=== PATIENT | female | born 1985 | race Two or more races ===

== ENCOUNTER 2025-03-20 11:08 | Emergency (ER) | payer MEDICAID, SELFPAY ==
[2025-03-20 11:15] VITALS: BP 103/70; PULSE 87; RESP 18; TEMP 36.6; O2SAT 99; BMI 20.2
--- NOTE | 2025-03-20 11:49 | XR_ITS ---
Examination: CT cervical spine without contrast 2-D sagittal reconstructions 2-D coronal reconstructions 3-D reconstructions. Exam date and time:March 20, 2025, 1313 hours INDICATIONS: Patient fell today with injury to the neck, neck pain CTDI:vol (mGy) 7.27 DLP: (mGycm) 137 Technique: Multiple 2 mm axial sections of the cervical spine have been obtained. The coronal and sagittal reconstructions have been obtained. 3-D reconstructions have been obtained. Low dose protocols were performed. One or more of the following dose reduction techniques were used; automated exposure control, adjustment of the mA and/or KV according to patient size, use of iterative reconstruction technique. Findings: Axial sections demonstrate intact base of the skull. C1 exhibit satisfactory relationship to the odontoid. No acute cervical vertebral body fracture seen. Alignment posterior spinous processes satisfactory. Impression: No acute cervical fracture.
--- NOTE | 2025-03-20 11:49 | XR_ITS ---
Examination: CT brain head without contrast. 2-D sagittal coronal reconstructions Date and time of exam:March 20, 2025 1313 hours INDICATIONS: Patient fell today with injury to the head, head pain CTDI: vol (mGy):46 DLP: (mGycm):898 Technique: Multiple CT axial sections of the brain have been obtained, 5 mm slice thickness. Contrast has not been administered. 2-D sagittal, coronal reconstructions have been obtained Low dose protocols were performed. One or more of the following dose reduction techniques were used; automated exposure control, adjustment of the mA and/or KV according to patient size, use of iterative reconstruction technique. Findings: No significant ventricular enlargement. Intra-axial or extra-axial hemorrhage density is not seen. No mass effect or midline shift Basal cisterns are not remarkable. Fourth ventricle is midline. Cranial vault intact. Impression: Negative for acute hemorrhage, mass effect or midline shift
--- NOTE | 2025-03-20 11:50 | EDNOTE_ITS ---
<Statement entered by Mari Orosco MD - 03/26/25 05:24> As co-signing physician, I was present and available for consult prn. I concur with the plan and care as documented by the midlevel provider. ED Headache RME/HPI General Chief Complaint: Headache Stated Complaint: HEADACHE X20 DAYS Time Seen by Provider: 03/20/25 11:19 Arrival date/time: 03/20/25 11:08 This is a 39-year-old female that fell off her bed and hit the back of her head and neck. Patient states it happened over 2 weeks ago. Patient states she still has constant pain. Patient denies any loss of consciousness. Patient denies any other symptoms other than pain Related Data Home Medications ?Medication ?Instructions ?Recorded ?Confirmed clonazepam 0.5 mg tablet (Klonopin) 0.5 mg PO BID #0 t abs 03/22/17 levofloxacin 500 mg tablet 1 tab PO QDAY #0 tabs 03/22 (Levaquin) pentoxifylline 400 mg 400 mg PO TID ##0 03/22/17 tablet,extended release Previous Rx's ?Medication ?Instructions ?Recorded Hydrocodone/Acetaminophen * (NORCO 1 - 2 tab PO Q4H DE N PAIN #14 tabs 03/22/17 5/325 *) Sulfamethoxazole/Trimethoprim DS * 1 tab PO BID #20 ta bs 03/22/17 (BACTRIM DS *) hydroxyzine HCl 50 mg tablet 50 mg PO Q6HR PRN ANXIETY #20 tabs 03/26/17 meloxicam 7.5 mg tablet 7.5 mg PO QDAY #10 tabs 06/25 02/15 hydroxyzine HCl 50 mg tablet 50 mg PO TID PRN anxiety #30 tabs 07/23/24 pantoprazole 40 mg tablet,delayed 40 mg PO QDAY #30 ta bs 07/23/24 release (Protonix) cyclobenzaprine 10 mg tablet 10 mg PO HS PRN muscle sp asm #14 03/20/25 tabs ibuprofen 800 mg tablet 800 mg PO Q6H PRN pain #14 t abs 03/20/25 Allergies Allergy/AdvReac Type Severity Reaction Status Date / Time metoclopramide Allergy Unknown Verified 03/20/25 11:13 Review of Systems Review of Systems Systems Reviewed: All systems reviewed, normal except as documented Past Medical History Past Medical History CARDIAC: Negative Congestive Heart Failure RESPIRATORY: Negative Chronic Obstructive Pulmonary Disease (COPD) GENITOURINARY: Negative Renal Disease ENDOCRINE: Negative Diabetes Mellitus Type 1 or Diabetes Mellitus Type 2 Social History SMOKING STATUS: Never smoker SUBSTANCE USE: does not use ED Exam General General appearance: Present alert and in no apparent distress Head Head exam: Present atraumatic Eye Eye exam: Present normal appearance, PERRL and EOMI ENT ENT exam: Present normal exam, normal oropharynx and mucous membranes moist Neck Neck exam: Present normal inspection, full ROM and trachea midline Chest Chest inspection: Present normal inspection and symmetric chest wall rise Respiratory Respiratory exam: Present normal lung sounds bilaterally Cardiovascular Cardiovascular exam: Present regular rate, normal rhythm and normal heart sounds Abdominal Exam Abdominal exam: Present soft and normal bowel sounds Extremities Exam Extremities exam: Present full ROM and other (pain to palpation to lateral muscles of neckon both sides, no pain over spinal processes ) Back Exam Back exam: Present normal inspection and full ROM Neurological Exam Neurological exam: Present alert, oriented X3 and CN II-XII intact Psychiatric Psychiatric exam: Present normal affect and normal mood Skin Skin exam: Present warm, dry, intact and normal color Course Quality Measures none Orders Category Date Time Status CT cervical spine wo con Stat Exams 03/20/25 11:[address] head/brain wo con Stat Exams 03/20/25 11:49 Completed Acetaminophen Tab [Tylenol ES Tab] Med 03/20/25 11:50 Discontinued 1,000 mg PO X1 ONE CYCLObenzaPRINE [Flexeril] Med 03/20/25 11:50 Discontinued 5 mg PO X1 ONE Ibuprofen Tab [Motrin Tab] Med 03/20/25 11:50 Discontinued 800 mg PO X1 ONE Vital Signs Vital signs: Vital Signs Temperature 97.9 F 03/20/25 11:15 Pulse Rate 87 03/20/25 11:15 Respiratory Rate 18 03/20/25 11:15 Blood Pressure 103/70 03/20/25 11:15 Pulse Oximetry (%) 99 03/20/25 11:15 Oxygen Delivery Method Room Air 03/20/25 11:15 Headache MDM Narrative MDM Narrative:: CT cervical: Findings: Axial sections demonstrate intact base of the skull. C1 exhibit satisfactory relationship to the odontoid. No acute cervical vertebral body fracture seen. Alignment posterior spinous processes satisfactory. Impression: No acute cervical fracture. ct head: Findings: No significant ventricular enlargement. Intra-axial or extra-axial hemorrhage density is not seen. No mass effect or midline shift Basal cisterns are not remarkable. Fourth ventricle is midline. Cranial vault intact. Impression: Negative for acute hemorrhage, mass effect or midline shift Patient given Tylenol and ibuprofen along with Flexeril. Will send patient home with Flexeril and ibuprofen. Patient told to follow-up with primary provider in 1 to 2 days. Can back to the emergency room if symptoms change or worsen. Today patient had Ct scans. There was no acute fracture seen. Exam appeared unremarkable. I explained to patient at length that if there was continued pain to this area or worsened to come back to ED or see primary provider for more xrays or further testing such as CT scan or MRI. CT scans are not perfect and sometimes serial films needed. Patient verbalized understanding. Patient states they will follow up with primary provider in 1-2 days or come back to ED if symptoms change or worsen. Patient data External records reviewed:: [facility] previous records Clinical information provided by:: patient Social determinants that could affect healthcare access:: none Patient has the following chronic illnesses:: none How is presenting disease/condition affected by chronic disease/condition?: no chronic disease Evaluation data The following diagnostics were reviewed and interpreted by me:: radiology exam(s) Lab and/or radiology exams considered but not ordered:: none Interpretation Summary: see note Medications / Prescriptions Medications or Prescriptions considered but not ordered:: none Medication administrations:: Medication Administration History Discontinued Medications Acetaminophen (Acetaminophen 500 Mg Tablet) 1,000 mg PO X1 ONE Stop: 03/20/25 11:51 Last Admin: 03/20/25 12:13 Dose: 1,000 mg Documented By: TM Cyclobenzaprine HCl (Cyclobenzaprine 5 Mg Tablet) 5 mg PO X1 ONE Stop: 03/20/25 11:51 Last Admin: 03/20/25 12:13 Dose: 5 mg Documented By: TM Ibuprofen (Ibuprofen Tab 400 Mg Tablet) 800 mg PO X1 ONE Stop: 03/20/25 11:51 Last Admin: 03/20/25 12:13 Dose: 800 mg Documented By: TM see [facility] Consultations Consultation(s) initiated? (list below): No Diagnosis Differential diagnosis headache: migraine, tension headache, subarachnoid hemorrhage and postconcussion syndrome Most likely diagnosis given after review of the tests above:: headache s/p head injury Admission Indicated Admission indicated?: not indicated Admission Request Was there a request for admission?: No Disposition Plan Disposition Plan: Discharge Discharge Attestation Discharge Attestation: The patient and all family members were given an opportunity to ask questions and understood the discharge instructions. Discharge instructions specifically effects, indications for sooner follow up or return to the emergency department, and the expected course of current diagnosis. Patient condition: Stable Discharge Plan Plan Patient Disposition: HOME (Self Care) Patient condition on transfer: Stable Prescriptions/Referrals Prescriptions/Med Rec: New cyclobenzaprine 10 mg tablet 10 mg PO HS PRN (Reason: muscle spasm) Qty: 14 0RF ibuprofen 800 mg tablet 800 mg PO Q6H PRN (Reason: pain) Qty: 14 0RF No Action clonazepam [Klonopin] 0.5 MG tablet 0.5 mg PO BID Qty: 0 pentoxifylline 400 MG tablet extended release 400 mg PO TID Qty: 0 levofloxacin [Levaquin] 500 MG tablet 1 tab PO QDAY Qty: 0 Patient Comments: FOR INFECTION Hydrocodone/Acetaminophen * (NORCO 5/325 *) 1 TAB tablet 1 - 2 tab PO Q4H PRN (Reason: PAIN) Qty: 14 0RF Rx Instructions: FOR PAIN Sulfamethoxazole/Trimethoprim DS * (BACTRIM DS *) 1 TAB tablet 1 tab PO BID Qty: 20 0RF hydroxyzine HCl 50 MG tablet 50 mg PO Q6HR PRN (Reason: ANXIETY) Qty: 20 0RF pantoprazole [Protonix] 40 mg tablet,delayed release (DR/EC) 40 mg PO QDAY Qty: 30 0RF hydroxyzine HCl 50 mg tablet 50 mg PO TID PRN (Reason: anxiety) Qty: 30 0RF meloxicam 7.5 mg tablet 7.5 mg PO QDAY Qty: 10 0RF Referrals: Kd Farrell MD [Primary Care Provider] - In 1 week Problem List Clinical Impression: Contusion Patient/Caregiver Discharge Instructions Discharge Activity: activity as tolerated Education Materials: Contusion Bone Tx Additional Instructions: Follow up with primary provider in 1-2 days. Come back to ED if symptoms change or worsen Print Language: Lao Stand Alone Forms: Bridgette Award Info., Patient Portal Info Letter PA/GLASS GRINDER Supervising Physician PA/GLASS GRINDER Supervising Physician: clarence
[2025-03-20] MEDS: IBUPROFEN TAB 400 MG TABLET 800 MG PO (12:13)
[2025-03-20] MEDS: CYCLObenzaPRINE 5 MG TABLET PO (12:13)
[2025-03-20] MEDS: ACETAMINOPHEN 500 MG TABLET 1000 MG PO (12:13)
== END 2025-03-20 14:44 | disposition home or self-care (01) ==
PROVIDERS: Emergency Provider Emergency Medicine; PCP Obstetrics & Gynecology
DX: S10.93XA Contusion of unspecified part of neck, initial encounter (principal); S00.93XA Contusion of unspecified part of head, initial encounter; W06.XXXA Fall from bed, initial encounter
CPT/HCPCS: 70450; 72125; A9270

== ENCOUNTER 2025-09-17 09:50 | Emergency (ER) | payer MEDICAID, SELFPAY ==
[2025-09-17 09:51] VITALS: BMI 23.0
[2025-09-17 10:05] VITALS: BP 130/76; PULSE 77; RESP 18; TEMP 36.9; O2SAT 100
--- NOTE | 2025-09-17 10:10 | PD.EDWOUND ---
ED Wound/Laceration-RME/HPI General Chief Complaint: Wound/Laceration Stated Complaint: SUPERFICIAL LAC TO BILAT. HANDS S/P BROKEN DOOR Time Seen by Provider: 09/17/25 09:59 Source: patient Arrival date/time: 09/17/25 09:50 40-year-old female with no known medical history presents to the emergency room with a chief complaint of a laceration to her left hand after a glass door broke 1 hour ago. Mode of arrival: ambulatory Limitations: no limitations Related Data Home Medications ?Medication ?Instructions ?Recorded ?Confirmed clonazepam 0.5 mg tablet (Klonopin) 0.5 mg PO BID #0 tabs 03/22/17 levofloxacin 500 mg tablet 1 tab PO QDAY #0 tabs 03/22/17 (Levaquin) pentoxifylline 400 mg 400 mg PO TID ##0 03/22/17 tablet,extended release Previous Rx's ?Medication ?Instructions ?Recorded Hydrocodone/Acetaminophen * (NORCO 1 - 2 tab PO Q4H PRN PAIN #14 tabs 03/22/17 5/325 *) Sulfamethoxazole/Trimethoprim DS * 1 tab PO BID #20 tabs 03/22/17 (BACTRIM DS *) hydroxyzine HCl 50 mg tablet 50 mg PO Q6HR PRN ANXIETY #20 tabs 03/26/17 meloxicam 7.5 mg tablet 7.5 mg PO QDAY #10 tabs 07/07/24 hydroxyzine HCl 50 mg tablet 50 mg PO TID PRN anxiety #30 tabs 07/23/24 pantoprazole 40 mg tablet,delayed 40 mg PO QDAY #30 tabs 07/23/24 release (Protonix) cyclobenzaprine 10 mg tablet 10 mg PO HS PRN muscle spasm #14 03/20/25 tabs ibuprofen 800 mg tablet 800 mg PO Q6H PRN pain #14 tabs 03/20/25 Allergies Allergy/AdvReac Type Severity Reaction Status Date / Time metoclopramide Allergy Unknown Verified 09/17/25 09:53 Review of Systems Review of Systems Systems Reviewed: All systems reviewed, normal except as documented Constitutional Constitutional: Reports system reviewed and no additional complaints, except as documented, Denies fatigue, Denies fever(s), Denies headache(s) and Denies weakness Eyes Eyes: Reports system reviewed and no additional complaints, except as documented, Denies blurry vision and Denies change in vision ENT Ears, Nose, Mouth, and Throat: Reports system reviewed and no additional complaints, except as documented, Denies otalgia, Denies headache(s), Denies nasal congestion, Denies throat swelling and Denies vertigo Cardiovascular Cardiovascular: Reports system reviewed and no additional complaints, except as documented, Denies chest pain, Denies dyspnea and Denies dyspnea on exertion Respiratory Respiratory: Reports system reviewed and no additional complaints, except as documented, Denies chest congestion, Denies cough, Denies dyspnea, Denies dyspnea on exertion and Denies wheezing Gastrointestinal Gastrointestinal: Reports system reviewed and no additional complaints, except as documented, Denies abdominal pain, Denies cramping, Denies nausea and Denies vomiting Genitourinary Genitourinary: Reports system reviewed and no additional complaints, except as documented Musculoskeletal Musculoskeletal: Reports system reviewed and no additional complaints, except as documented and Denies back pain Integumentary/Breasts Skin/Breast: Reports system reviewed and no additional complaints, except as documented and Denies wounds Neurologic Neurologic: Reports system reviewed and no additional complaints, except as documented, Denies confusion, Denies headache(s), Denies lack of coordination, Denies vertigo and Denies weakness Psychiatric Psychiatric: Reports system reviewed and no additional complaints, except as documented, Denies anxiety, Denies confusion, Denies depression, Denies paranoia, Denies suicidal ideation and Denies tactile hallucinations Endocrine Endocrine: Reports system reviewed and no additional complaints, except as documented and Denies fatigue Hematologic/Lymphatic Hematologic/Lymphatic: Reports system reviewed and no additional complaints, except as documented and Denies lymphadenopathy Allergic/Immunologic Allergic/Immunologic: Reports system reviewed and no additional complaints, except as documented, Denies throat swelling, Denies urticaria and Denies wheezing Past Medical History Past Medical History CARDIAC: Negative Congestive Heart Failure RESPIRATORY: Negative Chronic Obstructive Pulmonary Disease (COPD) GASTROINTESTINAL: Positive Crohn's Disease GENITOURINARY: Negative Renal Disease REPRODUCTIVE: Positive Previous Pregnancies ENDOCRINE: Positive Endocrine Disorders (pancreatic tumor); Negative Diabetes Mellitus Type 1 or Diabetes Mellitus Type 2 HEMATOLOGIC: Negative Blood Disorders or Clotting Problems PSYCHO/SOCIAL: Positive Depression and Anxiety OTHER HISTORY: Negative Cancer Social History SMOKING STATUS: Never smoker SUBSTANCE USE: does not use ED Exam General Limitations: Present no limitations General appearance: Present alert and in no apparent distress Head Head exam: Present atraumatic Eye Eye exam: Present normal appearance, PERRL and EOMI ENT ENT exam: Present normal exam, normal oropharynx and mucous membranes moist Neck Neck exam: Present normal inspection, full ROM and trachea midline Chest Chest inspection: Present normal inspection and symmetric chest wall rise Respiratory Respiratory exam: Present normal lung sounds bilaterally Cardiovascular Cardiovascular exam: Present regular rate, normal rhythm and normal heart sounds Abdominal Exam Abdominal exam: Present soft and normal bowel sounds Extremities Exam Extremities exam: Present normal inspection and full ROM Back Exam Back exam: Present normal inspection and full ROM Neurological Exam Neurological exam: Present alert, oriented X3 and CN II-XII intact Psychiatric Psychiatric exam: Present normal affect and normal mood Skin Skin exam: Present warm, dry, intact and normal color Course Quality Measures none Orders Category Date Time Status Wound Care X1 Care 09/17/25 10:09 Completed Vital Signs Vital signs: Vital Signs Temperature 98.5 F 09/17/25 10:05 Pulse Rate 77 09/17/25 10:05 Respiratory Rate 18 09/17/25 10:05 Blood Pressure 130/76 09/17/25 10:05 Pulse Oximetry (%) 100 09/17/25 10:05 Oxygen Delivery Method Room Air 09/17/25 10:05 Wound / Laceration MDM Narrative MDM Narrative:: 40-year-old female with no known medical history presents to the emergency room with a chief complaint of a laceration to her left hand after a glass door broke 1 hour ago. Patient is hemodynamically stable and in no apparent distress Physical examination shows a small 0.5 cm laceration to the left hand. There is no evidence of any foreign bodies in the laceration. The wound was cleaned and irrigated and a dressing was placed and patient was discharged Patient was discharged and educated to follow-up with primary care provider in the next 24 to 48 hours and return to the emergency room for any evidence of worsening signs or symptoms Patient data External records reviewed:: [facility] previous records Clinical information provided by:: patient Social determinants that could affect healthcare access:: none Patient has the following chronic illnesses:: No chronic illness How is presenting disease/condition affected by chronic disease/condition?: no chronic disease Evaluation data The following diagnostics were reviewed and interpreted by me:: lab results and radiology exam(s) Lab and/or radiology exams considered but not ordered:: Labs and radiology exams considered and ordered Interpretation Summary: N/A Medications / Prescriptions Medications or Prescriptions considered but not ordered:: No medication given now Medication administrations:: No medication given Consultations Consultation(s) initiated? (list below): No Diagnosis Wound Differential Diagnosis: laceration, abrasion and avulsion of skin Most likely diagnosis given after review of the tests above:: Abrasion Admission Indicated Admission indicated?: not indicated Admission Request Was there a request for admission?: No Disposition Plan Disposition Plan: Discharge Discharge Attestation Discharge Attestation: The patient and all family members were given an opportunity to ask questions and understood the discharge instructions. Discharge instructions specifically effects, indications for sooner follow up or return to the emergency department, and the expected course of current diagnosis. Patient condition: Stable Discharge Plan Plan Patient Disposition: HOME (Self Care) Discharge Disposition comment: Stable Prescriptions/Referrals Prescriptions/Med Rec: No Action clonazepam [Klonopin] 0.5 MG tablet 0.5 mg PO BID Qty: 0 pentoxifylline 400 MG tablet extended release 400 mg PO TID Qty: 0 levofloxacin [Levaquin] 500 MG tablet 1 tab PO QDAY Qty: 0 Patient Comments: FOR INFECTION Hydrocodone/Acetaminophen * (NORCO 5/325 *) 1 TAB tablet 1 - 2 tab PO Q4H PRN (Reason: PAIN) Qty: 14 0RF Rx Instructions: FOR PAIN Sulfamethoxazole/Trimethoprim DS * (BACTRIM DS *) 1 TAB tablet 1 tab PO BID Qty: 20 0RF hydroxyzine HCl 50 MG tablet 50 mg PO Q6HR PRN (Reason: ANXIETY) Qty: 20 0RF pantoprazole [Protonix] 40 mg tablet,delayed release (DR/EC) 40 mg PO QDAY Qty: 30 0RF hydroxyzine HCl 50 mg tablet 50 mg PO TID PRN (Reason: anxiety) Qty: 30 0RF meloxicam 7.5 mg tablet 7.5 mg PO QDAY Qty: 10 0RF cyclobenzaprine 10 mg tablet 10 mg PO HS PRN (Reason: muscle spasm) Qty: 14 0RF ibuprofen 800 mg tablet 800 mg PO Q6H PRN (Reason: pain) Qty: 14 0RF Referrals: Kd Farrell MD [Primary Care Provider, Obstetrics] - In 1 week Problem List Clinical Impression: Abrasion Patient/Caregiver Discharge Instructions Additional Instructions: Please follow-up with your primary care provider in the next 24 to 48 hours For any evidence of worsening signs or symptoms return to the emergency room immediately Print Language: Icelandic Stand Alone Forms: Bridgette Award Info., Work/School Release, Patient Portal Info Letter PA/SHIPBUILDING DRAFTSPERSON Supervising Physician PA/SHIPBUILDING DRAFTSPERSON Supervising Physician: Dr. Caro
== END 2025-09-17 12:28 | disposition home or self-care (01) ==
PROVIDERS: Emergency Provider Nurse Practitioner Family; PCP Obstetrics & Gynecology
DX: S61.412A Laceration without foreign body of left hand, initial encounter (principal); W25.XXXA Contact with sharp glass, initial encounter
CPT/HCPCS: 99282